=== PATIENT | female | born 1965 | race Caucasian/White ===

== ENCOUNTER 2017-01-07 15:00 | Outpatient (RCR) | payer BC ==
[~2017-01-07 15:00] MED LIST: ADVIL200 MG PO; ALBUTEROL0.09 MG/A1 IH; ALIGN; AMBIEN 10MG10 MG PO; AMBIEN 5MG TABLE5 MG PO; ASPIR-LOW81 MG PO; ATENOLOL25 MG PO; BCP TD; BIO IDENTICAL; CALTRATE-600 W600 MG PO; CLARITIN 1010 MG/TAB PO; CLONAZEPAM1 MG PO; DOXYCYCLINE 10100 MG PO; ESCITALOPRAM; FIORINAL PO; FISH OIL1 IU PO; FLEXERIL 1010 MG/TAB PO; FLONASE NASAL S16 GM NS; KLONOPIN 1MG1 MG PO; LORATADINE10 MG PO; MULTIPLE VITAMI1 TAB PO; MVI; NASONEX SPRAY IH; PHARMASSURE ZIN50 MG PO; PRILOSEC 20MG20 MG PO; TENORMIN 2525 MG/TAB PO; TOPROL XL 25MG25 MG PO; TORADOL 10MG TA10 MG PO; TYLENOL 325MG325 MG PO; VITAMIN D31000 IU PO; WELLBUTRIN PO; WELLBUTRIN XL300 M1 PO; WELLBUTRIN XL300 MG PO; ZORVOLEX18 MG PO
== END 2017-01-11 09:32 ==
LOC: MKS.ESL.PT 15:00
DX: M75.91 Shoulder lesion, unspecified, right shoulder (principal)
CPT/HCPCS: G0283-GP